=== PATIENT | female | born 1975 | race African-American/Black ===

== ENCOUNTER 2017-03-13 13:25 | Emergency (ER) | payer MEDICAID ==
[~2017-03-13] VITALS: Ht 175.3 cm; Wt 72.6 kg
[~2017-03-13 13:25] MED LIST: BACTRIM-DS1 EA PO; COMPAZINE10 MG PO; IBUPROFEN600 MG ORAL; LIDOPRO OINTME121 GM TP; NKM; NORCO 5-325 TA1 EACH ORAL; ONDANSETRON ODT4 MG PO; PRILOSEC20 MG PO; VICODIN 5-5001 EACH PO
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
[2017-03-13] MEDS ORDERED: CYCLOBENZAPRINE10 MG ORAL (14:37)
[2017-03-13] MEDS ORDERED: IBUPROFEN600 MG ORAL (14:37)
[2017-03-13 14:50] VITALS: BP 130/80
== END 2017-03-13 14:50 | disposition home or self-care (01) ==
LOC: EMR 14:01
DX: S16.1XXA Strain of muscle, fascia and tendon at neck level, initial encounter (principal); Z88.8 Allergy status to other drugs, medicaments and biological substances; V43.52XA Car driver injured in collision with other type car in traffic accident, initial encounter; Y92.410 Unspecified street and highway as the place of occurrence of the external cause
CPT/HCPCS: 99284

== ENCOUNTER 2017-06-05 09:14 | Emergency (ER) | payer MEDICAID ==
[~2017-06-05] VITALS: Ht 167.6 cm; Wt 72.6 kg
[~2017-06-05 09:14] MED LIST changes: +CYCLOBENZAPRINE10 MG ORAL
[2017-06-05] MEDS ORDERED: IBUPROFEN600 MG ORAL (10:06)
[2017-06-05] MEDS ORDERED: ROBAXIN-750750 MG PO (10:06)
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
[2017-06-05 10:20] VITALS: BP 127/84
== END 2017-06-05 10:20 | disposition home or self-care (01) ==
LOC: EMR 09:31
DX: S13.9XXD Sprain of joints and ligaments of unspecified parts of neck, subsequent encounter (principal); V43.52XD Car driver injured in collision with other type car in traffic accident, subsequent encounter; Z88.8 Allergy status to other drugs, medicaments and biological substances
CPT/HCPCS: 99284

== ENCOUNTER 2018-03-23 13:26 | Emergency (ER) | payer MEDICAID, OTHER ==
[~2018-03-23] VITALS: Ht 167.6 cm; Wt 74.8 kg
[~2018-03-23 13:26] MED LIST changes: +ROBAXIN-750750 MG PO
[2018-03-23 13:45] VITALS: BP 117/56
[2018-03-23] MEDS ORDERED: Mylanta II UD 30ml ORAL ONE (14:00)
[2018-03-23] MEDS ORDERED: Lidocaine 2% Visc 15ml soln ORAL ONE (14:00)
[2018-03-23] MEDS ORDERED: Aspirin Baby 81mg ORAL ONE (14:00)
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
[2018-03-23 14:37] LABS: BASOPHILS % (AUTO) 2.2 % (0.0-2.0); EOSINOPHILS % (AUTO) 0.2 % (0.0-3.0); HEMATOCRIT 30.6 % (37.0-47.0); LYMPHOCYTES % (AUTO) 22.4 % (20.0-45.0); MEAN CORPUSCULAR VOLUME 69 FL (80-99); MONOCYTES % (AUTO) 6.8 % (1.0-10.0); NEUTROPHILS % (AUTO) 68.5 % (45.0-75.0); PLATELET COUNT 276 K/UL (150-450); RED BLOOD COUNT 4.44 M/UL (4.20-5.40); RED CELL DISTRIBUTION WIDTH 14.6 % (11.6-14.8); WHITE BLOOD COUNT 4.4 K/UL (4.8-10.8)
[2018-03-23 14:48] LABS: ANION GAP 12 mmol/L (5-15); BLOOD UREA NITROGEN 14 mg/dL (7-18); CALCIUM 9.4 MG/DL (8.5-10.1); CARBON DIOXIDE 24 MMOL/L (21-32); CHLORIDE 102 MMOL/L (98-107); POTASSIUM 3.6 MMOL/L (3.5-5.1); SODIUM 138 MMOL/L (136-145)
[2018-03-23 15:02] LABS: ALANINE AMINOTRANSFERASE 37 U/L (12-78); ALBUMIN 3.9 G/DL (3.4-5.0); ALKALINE PHOSPHATASE 100 U/L (46-116); ASPARTATE AMINO TRANSFERASE 40 U/L (15-37); BILIRUBIN,TOTAL 0.5 MG/DL (0.2-1.0); CKMB 1.6 NG/ML (0.0-3.6); CREATINE KINASE 304 U/L (26-308)
--- NOTE | 2018-03-23 15:26 | Diagnostic Imaging Report ---
Indication: Cough Technique: One view of the chest Comparison: none Findings: Lungs and pleural spaces are clear. Heart size is normal Impression: No acute process
[2018-03-23] MEDS ORDERED: Isovue-370 150ml vial INJ PRN (15:45)
[2018-03-23 16:11] LABS: APPEARANCE,URINE CLEAR; BILIRUBIN, URINE NEGATIVE (NEGATIVE); COLOR,URINE PALE YELLOW; GLUCOSE, URINE (UA) NEGATIVE (NEGATIVE); KETONES,URINE 3+ (NEGATIVE); LEUKOCYTE ESTERASE ,URINE 1+ (NEGATIVE); NITRITE,URINE NEGATIVE (NEGATIVE); PH,URINE 5 (4.5-8.0); PROTEIN,URINE 2+ (NEGATIVE); UROBILINOGEN,URINE 1 MG/DL (0.0-1.0)
[2018-03-23 17:42] VITALS: BP 119/61
[2018-03-23] MEDS ORDERED: ZITHROMAX250 MG ORAL (17:56)
[2018-03-23 18:05] VITALS: BP 119/61
--- NOTE | 2018-03-24 08:23 | Diagnostic Imaging Report ---
ndication: Reason For Exam: PE Technique: IV administration nonionic contrast. Spiral acquisitions obtained from the lung bases to the lung apices. Multiplanar and 3-D reconstructions were generated. Total dose length product 526.87 mGycm. CTDIvol(s) 17.43 mGy. Dose reduction achieved using automated exposure control Comparison: none Findings: Pulmonary arteries are well opacified. No intraluminal filling defects or other findings to suggest acute pulmonary embolus demonstrated. Normal caliber central pulmonary arteries. No evidence of right ventricular dilatation. Normal heart size. No evidence of thoracic aortic aneurysm or dissection There is a large confluent right hilar mass/adenopathy. This results in narrowing of some of the upper lobe arteries. This measures approximately 4.3 cm AP by 2.9 cm transverse by 3.4 cm craniocaudad. There is also subcarinal lymphadenopathy, with conglomeration of nodes measuring approximately 4.5 x 2.6 cm. There is right paratracheal adenopathy and left hilar adenopathy. Left hilar adenopathy is less extensive than the right. Patchy areas of irregular airspace and reticular opacity are seen in the right upper lobe. Peripherally, some of these may have a slight tree-in-bud appearance There is equivocal mild generalized interstitial septal thickening in the upper lobes. The remainder all The lungs are clear. No effusions. The airways are clear. The esophagus is unremarkable. The included portions of the thyroid are unremarkable. No axillary or chest wall mass or adenopathy. The included upper abdominal anatomy is unremarkable. The bones are unremarkable. Impression: Negative for evidence of acute pulmonary embolus or other acute pulmonary vascular pathology. Right paratracheal mass/adenopathy. Less extensive left paratracheal adenopathy. Mediastinal adenopathy, as described. Differential considerations are numerous, including tuberculosis or other infectious etiologies, metastatic neoplasm, primary lymphoproliferative disorder, multiple noninfectious inflammatory etiologies. Distribution of the lymphadenopathy also raises possibility of sarcoidosis. Right upper lobe parenchymal disease, as described. Nonspecific but could indicate pneumonia or noninfectious inflammatory disease. Possible peripheral tree-in-bud appearance increases concern for tuberculosis Critical value findings discussed by phone with Dr. Leiva at the time of interpretation The CT scanner at [facility] is accredited by the [employer] and the scans are performed using protocols designed to limit radiation exposure to as low as reasonably achievable to attain images of sufficient resolution adequate for diagnostic evaluation.
--- NOTE | 2018-03-24 15:38 | Cardiology Report ---
APPROVED REPORT EKG Measurement Heart [id number] Normal sinus rhythm Normal ECG
== END 2018-03-23 18:25 | disposition home or self-care (01) ==
LOC: EMR 14:10
DX: R07.9 Chest pain, unspecified (principal); F41.9 Anxiety disorder, unspecified; R91.8 Other nonspecific abnormal finding of lung field; Z88.8 Allergy status to other drugs, medicaments and biological substances
CPT/HCPCS: 36415; 71045; 71275; 80053; 80307; 81003; 81025; 82550; 82553; 84439; 84443; 84484; 85025; 85379; 93005; 96361; 96374; 99284; Q9967; S0028

== ENCOUNTER 2018-05-25 12:37 | Emergency (ER) | payer OTHER ==
[~2018-05-25] VITALS: Ht 167.6 cm; Wt 68.0 kg
[~2018-05-25 12:37] MED LIST changes: +ZITHROMAX250 MG ORAL
[2018-05-25] MEDS ORDERED: UNOBMED (12:56)
[2018-05-25 13:00] VITALS: BP 122/67
[2018-05-25] MEDS ORDERED: CEPHALEXIN500 MG ORAL (13:20)
[2018-05-25 13:25] VITALS: BP 122/67
--- NOTE | 2018-05-25 14:48 | Emergency Room Report ---
History of Present Illness General Chief Complaint: Skin Rash/Abscess Source: Patient Present Illness HPI 42-year-old female presents ED for evaluation. Patient complaining of a rash to her chin started a few days ago. States it is very painful. Started as a small pimple which she tried to pop and has gotten worse. Pain is dull, 7 out of 10, nonradiating. Denies fevers or chills. Denies discharge. Notes history of prior acne which required treatment in the past. No other aggravating relieving factors. Denies any other associated symptoms Allergies: Coded Allergies: METOCLOPRAMIDE HCL (Verified Allergy, Mild, LOCKJAW, 07/25/12) PROMETHAZINE HCL (Verified Allergy, Mild, NAUSEA, 07/25/12) Patient History Past Medical History: none Past Surgical History: none Pertinent Family History: none Social History: Denies: smoking, alcohol use, drug use Last Menstrual Period: last month Now: No Immunizations: UTD Reviewed Nursing Documentation: PMH: Agreed; PSxH: Agreed Nursing Documentation-PMH Past Medical History: No Stated History Hx Gastrointestinal Problems: Yes Review of Systems All Other Systems: negative except mentioned in HPI Physical Exam Vital Signs Date Time Temp Pulse Resp B/P (MAP) Pulse Ox O2 Delivery O2 Flow Rate FiO2 05/25/18 12:52 98.8 73 18 122/67 100 Room Air 98.8 Sp02 EP Interpretation: reviewed, normal General Appearance: no apparent distress, alert, GCS 15, non-toxic Head: normocephalic Eyes: bilateral eye normal inspection, bilateral eye PERRL ENT: normal ENT inspection Neck: normal inspection Respiratory: normal inspection Cardiovascular #1: normal inspection Gastrointestinal: normal inspection Rectal: deferred Genitourinary: no CVA tenderness Musculoskeletal: normal inspection Neurologic: alert, oriented x3, responsive, motor strength/tone normal, sensory intact, speech normal Psychiatric: normal inspection Skin: other - folliculitis R chin. pustular heads. Lymphatic: normal inspection Medical Decision Making Diagnostic Impression: Primary Impression: Rash ER Course Hospital Course 42-year-old female presents to ED with rash to face Differential diagnoses include: Cellulitis, dermatitis, insect bite, abscess Clinical course Patient placed on stretcher. After initial history, physical exam reveals a female in no acute distress. On exam there are pustular heads noted to the chin. Nonerythematous base. No fluctuance or discharge. Insisting with folliculitis versus acne. We'll discharge on antibiotics. Recommend old with dermatology Diagnosis - rash stable and discharged to home with prescription for Keflex. warm compresses. Instructed to followup with PMD. Instructed return to ED if symptoms recur or worsen Last Vital Signs Date Time Temp Pulse Resp B/P (MAP) Pulse Ox O2 Delivery O2 Flow Rate FiO2 05/25/18 12:52 98.8 73 18 122/67 100 Room Air 98.8 Status: improved Disposition: HOME, SELF-CARE Condition: Stable Scripts Cephalexin* (KEFLEX*) 500 Mg Capsule 500 MG ORAL EVERY 6 HOURS for 7 Days, CAP Prov: Jomar Bazan MD 05/25/18 Referrals: [facility] (PCP) Patient Instructions: Acne, [id number], Folliculitis Jomar Bazan MD May 25, 2018 14:48
== END 2018-05-25 13:25 | disposition home or self-care (01) ==
LOC: EMR 13:15
DX: R21 Rash and other nonspecific skin eruption (principal); L73.9 Follicular disorder, unspecified; Z88.8 Allergy status to other drugs, medicaments and biological substances
CPT/HCPCS: 99283

== ENCOUNTER 2018-06-22 16:24 | Emergency (ER) | payer OTHER ==
[~2018-06-22] VITALS: Ht 167.6 cm; Wt 68.0 kg
[~2018-06-22 16:24] MED LIST changes: +CEPHALEXIN500 MG ORAL; +UNOBMED
[2018-06-22 16:50] VITALS: BP 145/90
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
[2018-06-22] MEDS ORDERED: BACITRACIN-P28.35 GM TP (18:00)
[2018-06-22] MEDS ORDERED: IBUPROFEN600 MG ORAL (18:00)
[2018-06-22 18:11] VITALS: BP 133/97
== END 2018-06-22 18:11 | disposition home or self-care (01) ==
LOC: EMR 18:07
DX: S01.111A Laceration without foreign body of right eyelid and periocular area, initial encounter (principal); Y04.2XXA Assault by strike against or bumped into by another person, initial encounter; Y92.9 Unspecified place or not applicable; Z88.8 Allergy status to other drugs, medicaments and biological substances
CPT/HCPCS: 12011; 99283; Z7502

== ENCOUNTER 2018-06-30 22:56 | Emergency (ER) | payer OTHER ==
[~2018-06-30] VITALS: Ht 167.6 cm; Wt 65.8 kg
[~2018-06-30 22:56] MED LIST changes: +BACITRACIN-P28.35 GM TP
[2018-06-30 23:15] VITALS: BP 132/81
[2018-06-30] MEDS ORDERED: BACTRIM DS TAB1 EAC1 ORAL (23:39)
[2018-06-30] MEDS ORDERED: MUPIROCIN22 GM TOPIC (23:39)
--- NOTE | 2018-06-30 23:39 | Emergency Room Report ---
History of Present Illness General Chief Complaint: Skin Rash/Abscess Source: Patient Present Illness HPI Is a 42-year-old female with a history of drug abuse in the past. She denies using anything recently. But previous visit show positive for methamphetamine. She presents with skin infection her face. She says she's picking at it and now is infected. Onset for about a week. No fever chills but no nausea no vomiting. No drainage. No other complaint. Allergies: Coded Allergies: METOCLOPRAMIDE HCL (Verified Allergy, Mild, LOCKJAW, 07/25/12) PROMETHAZINE HCL (Verified Allergy, Mild, NAUSEA, 07/25/12) Patient History Past Medical History: see triage record, old chart reviewed Past Surgical History: none Pertinent Family History: none Social History: Reports: smoking Last Menstrual Period: 06/22/2018 Now: No : 2 Para: 2 Immunizations: other Reviewed Nursing Documentation: PMH: Agreed; PSxH: Agreed Nursing Documentation-PMH Past Medical History: No Stated History Hx Gastrointestinal Problems: Yes Review of Systems Eye: Denies: eye pain, blurred vision ENT: Denies: ear pain, nose congestion, throat swelling Respiratory: Denies: cough, shortness of breath Cardiovascular: Denies: chest pain, palpitations Gastrointestinal: Denies: abdominal pain, diarrhea, nausea, vomiting Musculoskeletal: Denies: back pain, joint pain Skin: Reports: rash Neurological: Denies: headache, numbness Endocrine: Denies: increased thirst, increased urine Hematologic/Lymphatic: Denies: easy bruising All Other Systems: negative except mentioned in HPI Physical Exam Vital Signs Date Time Temp Pulse Resp B/P (MAP) Pulse Ox O2 Delivery O2 Flow Rate FiO2 06/30/18 23:04 97.5 74 16 131/83 99 Room Air vitals normal Sp02 EP Interpretation: reviewed, normal General Appearance: well appearing, no apparent distress, alert Head: normocephalic, atraumatic Eyes: bilateral eye PERRL, bilateral eye EOMI ENT: hearing grossly normal, normal pharynx, other - On her cheeks and chin there is ulceration from chronic skin picking. No abscess seen. Neck: full range of motion, supple, no meningismus Respiratory: chest non-tender, lungs clear, normal breath sounds Cardiovascular #1: regular rate, rhythm, no murmur Gastrointestinal: normal bowel sounds, non tender, no mass, no organomegaly, no bruit, non-distended Musculoskeletal: back normal, gait/station normal, normal range of motion Psychiatric: mood/affect normal Skin: warm/dry Medical Decision Making Diagnostic Impression: Primary Impression: Facial cellulitis Additional Impression: Methamphetamine abuse ER Course Patient with skin picking secondary to methamphetamine abuse. We'll treat for potential secondary cellulitis infection. Was likely MRSA. No evidence of abscess or necrotizing fasciitis. We'll discharge home. Last Vital Signs Date Time Temp Pulse Resp B/P (MAP) Pulse Ox O2 Delivery O2 Flow Rate FiO2 06/30/18 23:15 97.6 78 17 132/81 99 Room Air Status: improved Disposition: HOME, SELF-CARE Condition: Stable Scripts Mupirocin* (MUPIROCIN*) 22 Gm Oint...g. 1 APPLIC TOPIC THREE TIMES A DAY, #22 GM Prov: Roberto Gonzalez MD 06/30/18 Trimethoprim/Sulfamethoxazole 160/800* (BACTRIM DS TABLET*) 1 Each Tablet 1 TAB ORAL Q12H, #14 TAB 0 Refills Prov: Roberto Gonzalez MD 06/30/18 Additional Instructions: Stop using drugs. Follow-up in rehabilitation and your doctor within a week. Return if symptom worsen. Roberto Gonzalez MD Jun 30, 2018 23:39
[2018-06-30 23:46] VITALS: BP 132/81
== END 2018-06-30 23:46 | disposition home or self-care (01) ==
LOC: EMR 23:30
DX: L03.211 Cellulitis of face (principal); F15.10 Other stimulant abuse, uncomplicated; Z88.8 Allergy status to other drugs, medicaments and biological substances; F17.200 Nicotine dependence, unspecified, uncomplicated
CPT/HCPCS: 99283

== ENCOUNTER 2018-07-11 21:06 | Emergency (ER) | payer OTHER ==
[~2018-07-11] VITALS: Ht 167.6 cm; Wt 63.5 kg
[~2018-07-11 21:06] MED LIST changes: +BACTRIM DS TAB1 EAC1 ORAL; +MUPIROCIN22 GM TOPIC
--- NOTE | 2018-07-11 21:37 | Emergency Room Report ---
History of Present Illness General Chief Complaint: Vomiting Source: Patient Present Illness HPI Patient is a 42-year-old female who presented after increased nausea and vomiting. Patient was having multiple episodes of vomiting. She reports having syncopal episode. The patient had history of similar episodes in the past. The patient noted to be allergic to Reglan and promethazine. The patient denies any diarrhea. Allergies: Coded Allergies: METOCLOPRAMIDE HCL (Verified Allergy, Mild, LOCKJAW, 07/25/12) PROMETHAZINE HCL (Verified Allergy, Mild, NAUSEA, 07/25/12) Patient History Past Medical History: see triage record Last Menstrual Period: last month Now: No Reviewed Nursing Documentation: PMH: Agreed; PSxH: Agreed Nursing Documentation-PMH Past Medical History: No Stated History Hx Gastrointestinal Problems: Yes Review of Systems All Other Systems: negative except mentioned in HPI Physical Exam Vital Signs Date Time Temp Pulse Resp B/P (MAP) Pulse Ox O2 Delivery O2 Flow Rate FiO2 07/11/18 21:18 97.5 78 20 164/99 94 Room Air Sp02 EP Interpretation: reviewed, normal General Appearance: normal inspection, well appearing, no apparent distress, alert, GCS 15 Head: atraumatic ENT: normal ENT inspection, hearing grossly normal, normal voice Neck: normal inspection, full range of motion, supple, no bony tend Respiratory: normal inspection, lungs clear, normal breath sounds, no respiratory distress, no retraction, no wheezing Cardiovascular #1: regular rate, rhythm, no edema Gastrointestinal: normal inspection, normal bowel sounds, non tender, soft, no guarding, no hernia Genitourinary: no CVA tenderness Musculoskeletal: normal inspection, back normal, normal range of motion Neurologic: normal inspection, alert, oriented x3, responsive, senior it project manager III-XII nml as tested, speech normal Psychiatric: normal inspection, judgement/insight normal, mood/affect normal Skin: normal inspection, normal color, no rash Medical Decision Making ER Course Patient presented for syncope. Differential diagnosis included but was not limited to arrhythmia, orthostatic hypotension, hypovolemia, vasovagal, anemia among others. Last Vital Signs Date Time Temp Pulse Resp B/P (MAP) Pulse Ox O2 Delivery O2 Flow Rate FiO2 07/11/18 21:18 97.5 78 20 164/99 94 Room Air Pawel Sanchez MD Jul 11, 2018 21:37
[2018-07-11 21:58] LABS: ANION GAP 17 mmol/L (5-15); BLOOD UREA NITROGEN 10 mg/dL (7-18); CALCIUM 9.5 MG/DL (8.5-10.1); CARBON DIOXIDE 20 MMOL/L (21-32); CHLORIDE 102 MMOL/L (98-107); POTASSIUM 3.5 MMOL/L (3.5-5.1); SODIUM 139 MMOL/L (136-145)
[2018-07-11] MEDS ORDERED: Capsaicin 0.075% Cream TOPIC ONE (22:00)
[2018-07-11] MEDS ORDERED: Haloperidol Lactate 5 MG in D5W 55 ML IVPB ONE (22:00)
[2018-07-11 22:02] LABS: ALANINE AMINOTRANSFERASE 26 U/L (12-78); ALBUMIN 4.2 G/DL (3.4-5.0); ALBUMIN/GLOBULIN RATIO 0.8 (1.0-2.7); ALKALINE PHOSPHATASE 92 U/L (46-116); ASPARTATE AMINO TRANSFERASE 31 U/L (15-37); BILIRUBIN,TOTAL 0.3 MG/DL (0.2-1.0); HEMATOCRIT 29.4 % (37.0-47.0); HEMOGLOBIN 8.6 G/DL (12.0-16.0); MEAN CORPUSCULAR VOLUME 65 FL (80-99); PLATELET COUNT 248 K/UL (150-450); RED BLOOD COUNT 4.54 M/UL (4.20-5.40); RED CELL DISTRIBUTION WIDTH 15.9 % (11.6-14.8); WHITE BLOOD COUNT 9.4 K/UL (4.8-10.8)
[2018-07-11 23:03] VITALS: BP 113/64
--- NOTE | 2018-07-12 18:23 | Cardiology Report ---
APPROVED REPORT EKG Measurement Heart [id number] Normal sinus rhythm Normal ECG
== END 2018-07-11 22:50 | disposition left against medical advice (07) ==
LOC: EMR 21:49
DX: R55 Syncope and collapse (principal); Z88.8 Allergy status to other drugs, medicaments and biological substances
CPT/HCPCS: 36415; 80053; 85007; 85025; 93005; 96361; 96374; 96375; 99284; J1630; J2405

== ENCOUNTER 2018-08-03 07:44 | Emergency (ER) | payer OTHER ==
[~2018-08-03] VITALS: Ht 170.2 cm; Wt 68.0 kg
[2018-08-03] MEDS ORDERED: UNOBMED (07:48)
[2018-08-03] MEDS ORDERED: Sodium Chloride 500ML 500 ML IV ONE (07:53)
[2018-08-03] MEDS ORDERED: Haloperidol Lactate 5 MG in D5W 55 ML IVPB ONE (08:00)
--- NOTE | 2018-08-03 08:13 | Emergency Room Report ---
History of Present Illness General Chief Complaint: Abdominal Pain Source: Patient Present Illness HPI Patient is a 42-year-old female who presented after increased nausea and vomiting. Patient states that she had similar symptoms in the past. Patient had been seen by me several weeks ago a similar symptoms. Patient had been noted to have prior history of anemia she had previous CT angiogram of her chest which showed some lymphadenopathy. The patient was noted to have the recent blood draw which showed some anemia. Allergies: Coded Allergies: METOCLOPRAMIDE HCL (Verified Allergy, Mild, LOCKJAW, 07/25/12) PROMETHAZINE HCL (Verified Allergy, Mild, NAUSEA, 07/25/12) Patient History Last Menstrual Period: 07/2018 Now: No Reviewed Nursing Documentation: PMH: Agreed; PSxH: Agreed Nursing Documentation-PMH Past Medical History: No Stated History Hx Gastrointestinal Problems: Yes Review of Systems All Other Systems: negative except mentioned in HPI Physical Exam Vital Signs Date Time Temp Pulse Resp B/P (MAP) Pulse Ox O2 Delivery O2 Flow Rate FiO2 08/03/18 07:45 98.2 74 20 145/75 97 Room Air Sp02 EP Interpretation: reviewed, normal General Appearance: normal inspection, well appearing, no apparent distress, alert, GCS 15 Head: atraumatic ENT: normal ENT inspection, hearing grossly normal, normal voice Neck: normal inspection, full range of motion, supple, no bony tend Respiratory: normal inspection, lungs clear, normal breath sounds, no respiratory distress, no retraction, no wheezing Cardiovascular #1: regular rate, rhythm, no edema Gastrointestinal: normal inspection, normal bowel sounds, non tender, soft, no guarding, no hernia Genitourinary: no CVA tenderness Musculoskeletal: normal inspection, back normal, normal range of motion Neurologic: normal inspection, alert, oriented x3, responsive, testing tech III-XII nml as tested, speech normal Psychiatric: normal inspection, judgement/insight normal, mood/affect normal Skin: normal inspection, normal color, no rash Medical Decision Making Diagnostic Impression: Primary Impression: Hyperemesis Additional Impression: Anemia ER Course Patient presented for abdominal pain. Differential diagnoses included ischemic bowel, appendicitis, perforated viscus, abdominal aortic aneurysm, inferior myocardial infarction, viral gastroenteritis Because of complexity of patient's case laboratory testing and imaging studies were ordered. The patient noted have prior history of hyperemesis due to marijuana. Patient had been previous advised to discontinue marijuana use the past. The patient was given IV fluids as well as IV antiemetics.The patient was noted to have improvement in her symptoms. Patient was advised to follow up with primary care physician for reevaluation and treatment. She is advised to stop smoking marijuana. Labs Test 08/03/18 07:35 08/03/18 09:00 White Blood Count 7.9 K/UL (4.8-10.8) Red Blood Count 4.65 M/UL (4.20-5.40) Hemoglobin 8.7 G/DL (12.0-16.0) Hematocrit 29.8 % (37.0-47.0) Mean Corpuscular Volume 64 FL (80-99) Mean Corpuscular Hemoglobin 18.8 PG (27.0-31.0) Mean Corpuscular Hemoglobin Concent 29.3 G/DL (32.0-36.0) Red Cell Distribution Width 16.7 % (11.6-14.8) Platelet Count 183 K/UL (150-450) Mean Platelet Volume 8.1 FL (6.5-10.1) Neutrophils (%) (Auto) 82.6 % (45.0-75.0) Lymphocytes (%) (Auto) 11.8 % (20.0-45.0) Monocytes (%) (Auto) 4.3 % (1.0-10.0) Eosinophils (%) (Auto) 0.1 % (0.0-3.0) Basophils (%) (Auto) 1.2 % (0.0-2.0) Prothrombin Time 10.5 SEC (9.30-11.50) Prothromb Time International Ratio 1.0 (0.9-1.1) Activated Partial Thromboplast Time 25 SEC (23-33) Sodium Level 138 MMOL/L (136-145) Potassium Level 3.2 MMOL/L (3.5-5.1) Chloride Level 104 MMOL/L (98-107) Carbon Dioxide Level 21 MMOL/L (21-32) Anion Gap 13 mmol/L (5-15) Blood Urea Nitrogen 13 mg/dL (7-18) Creatinine 0.9 MG/DL (0.55-1.30) Estimat Glomerular Filtration Rate > 60 mL/min (>60) Glucose Level 119 MG/DL (74-106) Calcium Level 9.2 MG/DL (8.5-10.1) Total Bilirubin 0.2 MG/DL (0.2-1.0) Aspartate Amino Transf (AST/SGOT) 26 U/L (15-37) Alanine Aminotransferase (ALT/SGPT) 27 U/L (12-78) Alkaline Phosphatase 106 U/L (46-116) Troponin I 0.000 ng/mL (0.000-0.056) Total Protein 9.1 G/DL (6.4-8.2) Albumin 3.9 G/DL (3.4-5.0) Globulin 5.2 g/dL Albumin/Globulin Ratio 0.8 (1.0-2.7) Lipase 177 U/L (73-393) Urine Color Pale yellow Urine Appearance Clear Urine pH 7 (4.5-8.0) Urine Specific [place]ard 1.010 (1.005-1.035) Urine Protein Negative (NEGATIVE) Urine Glucose (UA) Negative (NEGATIVE) Urine Ketones Negative (NEGATIVE) Urine Blood Negative (NEGATIVE) Urine Nitrite Negative (NEGATIVE) Urine Bilirubin Negative (NEGATIVE) Urine Urobilinogen Normal MG/DL (0.0-1.0) Urine Leukocyte Esterase Negative (NEGATIVE) Last Vital Signs Date Time Temp Pulse Resp B/P (MAP) Pulse Ox O2 Delivery O2 Flow Rate FiO2 08/03/18 07:45 98.2 74 20 145/75 97 Room Air Status: improved Disposition: HOME, SELF-CARE Condition: Stable Scripts Ondansetron (Zofran) 4 Mg Tablet 4 MG ORAL Q6H PRN for Nausea & Vomiting, #15 TAB 0 Refills Prov: Pawel Sanchez MD 08/03/18 Ferrous Sulfate (IRON) 325 Mg Tablet 325 MG PO DAILY, #20 TAB Prov: Pawel Sanchez MD 08/03/18 Referrals: [facility] (PCP) Pawel Sanchez MD Aug 03, 2018 08:13
[2018-08-03] MEDS ORDERED: LORazepam Inj 2mg/ml 1ml IV ONE (08:15)
[2018-08-03 08:27] VITALS: BP 145/75
[2018-08-03 08:43] LABS: BASOPHILS % (AUTO) 1.2 % (0.0-2.0); EOSINOPHILS % (AUTO) 0.1 % (0.0-3.0); HEMATOCRIT 29.8 % (37.0-47.0); HEMOGLOBIN 8.7 G/DL (12.0-16.0); LYMPHOCYTES % (AUTO) 11.8 % (20.0-45.0); MEAN CORPUSCULAR VOLUME 64 FL (80-99); MONOCYTES % (AUTO) 4.3 % (1.0-10.0); NEUTROPHILS % (AUTO) 82.6 % (45.0-75.0); PLATELET COUNT 183 K/UL (150-450); RED BLOOD COUNT 4.65 M/UL (4.20-5.40); RED CELL DISTRIBUTION WIDTH 16.7 % (11.6-14.8); WHITE BLOOD COUNT 7.9 K/UL (4.8-10.8)
[2018-08-03 08:54] LABS: ANION GAP 13 mmol/L (5-15); BLOOD UREA NITROGEN 13 mg/dL (7-18); CALCIUM 9.2 MG/DL (8.5-10.1); CARBON DIOXIDE 21 MMOL/L (21-32); CHLORIDE 104 MMOL/L (98-107); CREATININE 0.9 MG/DL (0.55-1.30); POTASSIUM 3.2 MMOL/L (3.5-5.1); SODIUM 138 MMOL/L (136-145)
[2018-08-03 08:59] LABS: ALANINE AMINOTRANSFERASE 27 U/L (12-78); ALBUMIN 3.9 G/DL (3.4-5.0); ALBUMIN/GLOBULIN RATIO 0.8 (1.0-2.7); ALKALINE PHOSPHATASE 106 U/L (46-116); ASPARTATE AMINO TRANSFERASE 26 U/L (15-37); BILIRUBIN,TOTAL 0.2 MG/DL (0.2-1.0)
[2018-08-03 09:21] LABS: APPEARANCE,URINE CLEAR; BILIRUBIN, URINE NEGATIVE (NEGATIVE); COLOR,URINE PALE YELLOW; GLUCOSE, URINE (UA) NEGATIVE (NEGATIVE); KETONES,URINE NEGATIVE (NEGATIVE); LEUKOCYTE ESTERASE ,URINE NEGATIVE (NEGATIVE); NITRITE,URINE NEGATIVE (NEGATIVE); PH,URINE 7 (4.5-8.0); PROTEIN,URINE NEGATIVE (NEGATIVE); UROBILINOGEN,URINE NORMAL MG/DL (0.0-1.0)
[2018-08-03] MEDS ORDERED: ZOFRAN4 MG ORAL (09:41)
[2018-08-03] MEDS ORDERED: IRON325 M1 PO (09:41)
[2018-08-03 09:50] VITALS: BP 115/85
== END 2018-08-03 09:52 | disposition home or self-care (01) ==
LOC: EMR 08:10
DX: R11.2 Nausea with vomiting, unspecified (principal); D64.9 Anemia, unspecified; R59.0 Localized enlarged lymph nodes; R10.9 Unspecified abdominal pain; Z88.8 Allergy status to other drugs, medicaments and biological substances
CPT/HCPCS: 36415; 80053; 81003; 83690; 84484; 85025; 85610; 85730; 86850; 86900; 86901; 96374; 96375; 99284; J1630; J2405; J7040; J8499

== ENCOUNTER 2018-12-23 21:04 | Emergency (ER) | payer OTHER ==
[~2018-12-23] VITALS: Ht 167.6 cm; Wt 68.0 kg
[~2018-12-23 21:04] MED LIST changes: +IRON325 M1 PO; +ZOFRAN4 MG ORAL
--- NOTE | 2018-12-23 21:39 | Emergency Room Report ---
History of Present Illness General Chief Complaint: Skin Rash/Abscess Source: Patient Present Illness HPI Presents with facial swelling and pain. She's had this before. She was treated with Keflex in the past. Her tetanus was last year. She pulls out facial hairs and the areas get infected. The infection spreads around her face. She denies any fevers or chills. The pain is rated 8/10, aching and burning in the face where the lesions are. Nonradiating. In the past she was also treated with Bactrim and Bactroban. Her last period was on the and normal for her. She denies any other symptoms. She denies diabetes. Allergies: Coded Allergies: METOCLOPRAMIDE HCL (Verified Allergy, Mild, LOCKJAW, 12/23/18) PROMETHAZINE HCL (Verified Allergy, Mild, NAUSEA, 12/23/18) Patient History Past Medical History: see triage record Social History: Denies: smoking Social History Narrative From home Now: No : 3 Para: 2 Reviewed Nursing Documentation: PMH: Agreed; PSxH: Agreed Nursing Documentation-PMH Past Medical History: No Stated History Hx Gastrointestinal Problems: Yes Review of Systems All Other Systems: negative except mentioned in HPI Physical Exam Vital Signs Date Time Temp Pulse Resp B/P (MAP) Pulse Ox O2 Delivery O2 Flow Rate FiO2 12/23/18 21:20 98.1 67 16 130/81 98 Room Air General Appearance: well appearing, no apparent distress, GCS 15, non-toxic Head: normocephalic, atraumatic Eyes: bilateral eye normal inspection ENT: hearing grossly normal, normal voice, moist mucus membranes Neck: full range of motion, supple Respiratory: no respiratory distress, speaking full sentences Cardiovascular #1: regular rate, rhythm Cardiovascular #2: 2+ radial (R) Gastrointestinal: normal inspection Musculoskeletal: digits/nails normal, gait/station normal, normal range of motion Neurologic: alert, oriented x3, normal gait, grossly normal Psychiatric: mood/affect normal Skin: other - Acneform lesions with slight hirsutism and areas of tenderness with raised nodularity without fluctuance or erythema Medical Decision Making Diagnostic Impression: Primary Impression: Facial cellulitis ER Course Patient presents with swelling, facial pain lesions that she believes are infected. Exam is against abscesses. This appears to be a cellulitis/ folliculitis. Antibiotics are indicated as well as analgesia. The patient is started on Bactrim, bacitracin is used and she is given Motrin. Patient stable for outpatient observation and treatment. Last Vital Signs Date Time Temp Pulse Resp B/P (MAP) Pulse Ox O2 Delivery O2 Flow Rate FiO2 12/24/18 00:36 98.1 81 16 131/80 98 Room Air Status: improved Disposition: HOME, SELF-CARE Condition: Improved Scripts Acetaminophen (Tylenol) 325 Mg Tablet 650 MG ORAL Q6H PRN for Prn Pain/Headache/Temp > 101, #20 TAB 0 Refills Prov: Rashard Tapia MD 12/23/18 Ibuprofen* (MOTRIN*) 600 Mg Tablet 600 MG ORAL Q6H PRN for For Pain, #20 TAB Prov: Rashard Tapia MD 12/23/18 Bacitracin (Bacitracin) 28.4 Gm Oint...g. 1 APPLIC TOPIC BID, #20 GM Prov: Rashard Tapia MD 12/23/18 Trimethoprim/Sulfamethoxazole 160/800* (BACTRIM DS TABLET*) 1 Each Tablet 1 TAB ORAL Q12H, #14 TAB 0 Refills Prov: Rashard Tapia MD 12/23/18 Rashard Tapia MD Dec 23, 2018 21:39
[2018-12-23] MEDS ORDERED: IBUPROFEN600 MG ORAL (21:42)
[2018-12-23] MEDS ORDERED: BACITRACIN15 GM TOPIC (21:42)
[2018-12-23] MEDS ORDERED: BACTRIM DS TAB1 EAC1 ORAL (21:42)
[2018-12-23] MEDS ORDERED: TYLENOL325 MG ORAL (21:42)
[2018-12-23] MEDS ORDERED: Bactrim-DS 1 tab ORAL ONE (21:45)
[2018-12-23] MEDS ORDERED: Bacitracin Oint UD TOPIC ONE (21:45)
[2018-12-24 00:36] VITALS: BP 131/80
== END 2018-12-23 22:30 | disposition home or self-care (01) ==
LOC: EMR 22:26
DX: L03.211 Cellulitis of face (principal); Z88.8 Allergy status to other drugs, medicaments and biological substances
CPT/HCPCS: 99281

== ENCOUNTER 2019-01-18 06:19 | Emergency (ER) | payer OTHER ==
[~2019-01-18] VITALS: Ht 167.6 cm; Wt 68.0 kg
[~2019-01-18 06:19] MED LIST changes: +BACITRACIN15 GM TOPIC; +TYLENOL325 MG ORAL
[2019-01-18] MEDS ORDERED: NKM (06:25)
--- NOTE | 2019-01-18 06:28 | NUR ---
ED Nurse Note: PT CAME TO ED FROM HOME C/O OF SKIN INFECTION ON CHEEKS AND CHIN X 3 DAYS. SMALL ACNE LIKE LESIONS NOTED. AO4. NAD. VSS
[2019-01-18 06:32] VITALS: BP 132/89
--- NOTE | 2019-01-18 06:45 | Emergency Room Report ---
History of Present Illness General Chief Complaint: Skin Rash/Abscess Source: Patient Present Illness HPI Patient states that she has had ongoing issues with acne. She states she gets large pustules on her face that become inflamed and swollen. She states that she does pop these lesions. She notes that these become worse just prior to her menses. She has seen a manager corporate strategy in the past but states that these treatments were not effective. She denies recent illness. She denies fever or chills. She denies nausea or vomiting. She states the antibiotic she received last time from here for the same condition was not as effective. She has no other complaints. Allergies: Coded Allergies: METOCLOPRAMIDE HCL (Verified Allergy, Mild, LOCKJAW, 12/23/18) PROMETHAZINE HCL (Verified Allergy, Mild, NAUSEA, 12/23/18) Patient History Past Medical History: none Social History: Reports: smoking; Denies: alcohol use, drug use Last Menstrual Period: 01/07/19 Now: No Reviewed Nursing Documentation: PMH: Agreed; PSxH: Agreed Nursing Documentation-PMH Past Medical History: No Stated History Hx Gastrointestinal Problems: Yes Review of Systems All Other Systems: negative except mentioned in HPI Physical Exam Vital Signs Date Time Temp Pulse Resp B/P (MAP) Pulse Ox O2 Delivery O2 Flow Rate FiO2 01/18/19 06:20 98.1 70 16 99 Room Air 01/18/19 06:32 132/89 Sp02 EP Interpretation: reviewed, normal General Appearance: no apparent distress, alert, GCS 15, non-toxic Head: normocephalic, atraumatic Eyes: bilateral eye normal inspection ENT: hearing grossly normal, no angioedema, normal voice Neck: normal inspection Respiratory: no respiratory distress, no retraction, no accessory muscle use, speaking full sentences Rectal: deferred Musculoskeletal: normal inspection, gait/station normal Neurologic: alert, oriented x3, responsive, motor strength/tone normal, sensory intact, speech normal Psychiatric: judgement/insight normal, memory normal, mood/affect normal, no suicidal/homicidal ideation Skin: warm/dry, well hydrated, other - Scattered nodular lesions on face c/w acne Medical Decision Making Diagnostic Impression: Primary Impression: Acne ER Course She has nodular acne. I will place the patient on a course of oral doxycycline and instructed her on benzyl peroxide washes. Overall, this patient's evaluation is benign and there is no emergency medical condition. The patient instructed to follow-up with her primary care physician or manager corporate strategy. The patient is given close return precautions and follow-up instructions. Last Vital Signs Date Time Temp Pulse Resp B/P (MAP) Pulse Ox O2 Delivery O2 Flow Rate FiO2 01/18/19 06:32 98.1 70 16 132/89 99 Room Air Status: improved Disposition: HOME, SELF-CARE Condition: Improved Referrals: NON PHYSICIAN (PCP) Aleyda Foley DO January 18, 2019 06:45
[2019-01-18] MEDS ORDERED: BENZOYL PEROXI TP (06:57)
[2019-01-18] MEDS ORDERED: VIBRAMYCIN100 MG ORAL (06:57)
[2019-01-18 07:00] VITALS: BP 132/89
--- NOTE | 2019-01-18 07:00 | NUR ---
ER DISCHARGE NOTE: Patient is cleared to be discharged per ERMD, pt is aox4, on room air, with stable vital signs. pt was given dc and prescription instructions, pt was able to verbalize understanding, pt id band removed. pt is able to ambulate with steady gait. pt took all belongings.
== END 2019-01-18 07:00 | disposition home or self-care (01) ==
LOC: EMR 06:32
DX: L70.0 Acne vulgaris (principal); Z88.8 Allergy status to other drugs, medicaments and biological substances; F17.200 Nicotine dependence, unspecified, uncomplicated
CPT/HCPCS: 99281

== ENCOUNTER 2019-04-25 09:30 | Emergency (ER) | payer OTHER ==
[~2019-04-25] VITALS: Ht 167.6 cm; Wt 72.6 kg
[~2019-04-25 09:30] MED LIST changes: +BENZOYL PEROXI TP; +IBUPROFEN800 MG ORAL; +VIBRAMYCIN100 MG ORAL
[2019-04-25] MEDS ORDERED: BACTRIM DOUBLE S1 E1 ORAL (09:42)
[2019-04-25 09:48] VITALS: BP 153/89
[2019-04-25] MEDS ORDERED: CLINDAMYCIN HC300 MG ORAL (10:01)
[2019-04-25] MEDS ORDERED: MUPIROCIN22 GM TOPIC (10:01)
--- NOTE | 2019-04-25 10:12 | NUR ---
examined by dr mace discharged home with instruction and rx follow up with pmd
[2019-04-25 10:30] VITALS: BP 153/89
--- NOTE | 2019-04-25 10:39 | Emergency Room Report ---
History of Present Illness General Chief Complaint: Skin Rash/Abscess Source: Patient Present Illness HPI 43-year-old female presents ED for evaluation. Patient complaining of a rash to her cheeks. States that she is prone to acne and states that she was popping some pustules when her face became swollen and red. Primarily over the cheeks. Pain is throbbing, 7 out of 10, nonradiating. Denies fevers or chills. Denies neck stiffness. Denies any discharge. No other aggravating relieving factors. Denies any other associated symptoms Allergies: Coded Allergies: METOCLOPRAMIDE HCL (Verified Allergy, Mild, LOCKJAW, 12/23/18) PROMETHAZINE HCL (Verified Allergy, Mild, NAUSEA, 04/25/19) Patient History Past Medical History: none Past Surgical History: none Pertinent Family History: none Social History: Denies: smoking, alcohol use, drug use Last Menstrual Period: MAR, 2018 Now: No Immunizations: UTD Reviewed Nursing Documentation: PMH: Agreed; PSxH: Agreed Nursing Documentation-PMH Past Medical History: No Stated History Hx Gastrointestinal Problems: Yes Review of Systems All Other Systems: negative except mentioned in HPI Physical Exam Vital Signs Date Time Temp Pulse Resp B/P (MAP) Pulse Ox O2 Delivery O2 Flow Rate FiO2 04/25/19 09:37 98.4 77 16 153/89 (110) 97 Room Air Sp02 EP Interpretation: reviewed, normal General Appearance: no apparent distress, alert, GCS 15, non-toxic Head: normocephalic Eyes: bilateral eye normal inspection, bilateral eye PERRL ENT: normal ENT inspection Neck: full range of motion, supple, no meningismus, supple/symm/no masses Respiratory: normal inspection Cardiovascular #1: normal inspection Gastrointestinal: normal inspection Rectal: deferred Genitourinary: no CVA tenderness Musculoskeletal: normal inspection Neurologic: alert, oriented x3, responsive, motor strength/tone normal, sensory intact, speech normal Psychiatric: normal inspection Skin: other - acne on bilateral cheeks. erythematous base Lymphatic: normal inspection Medical Decision Making Diagnostic Impression: Primary Impression: Folliculitis ER Course Hospital Course 43-year-old female presents to ED with rash to face Differential diagnoses include: Cellulitis, dermatitis, insect bite, abscess Clinical course Patient placed on stretcher. After initial history, physical exam reveals a female in no acute distress. On exam there is a erupting acne on both cheeks bilaterally with erythematous base. No fluctuance or discharge. Discussed findings with patient. Will discharge with clindamycin and Bactroban. However patient would benefit from outpatient dermatology evaluation. States she will follow-up with her PMD for referral Diagnosis - folliculitis stable and discharged to home with prescription for clindamycin, mupirocin. Instructed to followup with PMD dermatology. Instructed return to ED if symptoms recur or worsen Last Vital Signs Date Time Temp Pulse Resp B/P (MAP) Pulse Ox O2 Delivery O2 Flow Rate FiO2 04/25/19 09:48 98.4 16 153/89 97 Room Air 04/25/19 09:37 77 Status: improved Disposition: HOME, SELF-CARE Condition: Stable Scripts Clindamycin Hcl (CLINDAMYCIN HCL) 300 Mg Capsule 300 MG ORAL THREE TIMES A DAY, #21 CAP Prov: Jomar Bazan MD 04/25/19 Mupirocin* (MUPIROCIN*) 22 Gm Oint...g. 1 APPLIC TOPIC THREE TIMES A DAY, #22 GM Prov: Jomar Bazan MD 04/25/19 Patient Instructions: Folliculitis Jomar Bazan MD Apr 25, 2019 10:39
== END 2019-04-25 10:30 | disposition home or self-care (01) ==
LOC: EMR 09:55
DX: L73.9 Follicular disorder, unspecified (principal); Z88.8 Allergy status to other drugs, medicaments and biological substances
CPT/HCPCS: 99282

== ENCOUNTER 2019-11-02 00:12 | Emergency (ER) | payer OTHER ==
[~2019-11-02] VITALS: Ht 167.6 cm; Wt 72.6 kg
[~2019-11-02 00:12] MED LIST changes: +BACTRIM DOUBLE S1 E1 ORAL; +CLINDAMYCIN HC300 MG ORAL
[2019-11-02 00:34] VITALS: BP 138/71
--- NOTE | 2019-11-02 00:34 | NUR ---
ED Nurse Note: Patient walked in from home d/t face rash for 3 days, pt tried to pop pimple and face now hurts. Patient aao x 4 and ambulatory. Patient stable upon assessment.
--- NOTE | 2019-11-02 00:41 | NUR ---
ED Nurse Note: ERMD at bedside.
[2019-11-02] MEDS ORDERED: Bactrim-DS 1 tab ORAL ONE (00:45)
[2019-11-02] MEDS ORDERED: CLINDAMYCIN PHO30 GM TP (00:49)
[2019-11-02] MEDS ORDERED: BACTRIM DS TAB1 EAC1 ORAL (00:49)
--- NOTE | 2019-11-02 00:50 | Emergency Room Report ---
History of Present Illness General Chief Complaint: Skin Rash/Abscess Source: Patient Present Illness HPI This a 44-year-old female with a history of methamphetamine abuse. She presents with chief complaint of rash on her face. Onset for last 4 days. She said she tried to pop it and there is some whitish discharge. Now there is another wound on her chin. No fever chills but tender to palpation. No drainage. No redness. She had this problem recurrently. Pain is 7 out of 10. Worse with palpation. Better with rest. Allergies: Coded Allergies: METOCLOPRAMIDE HCL (Verified Allergy, Mild, LOCKJAW, 12/23/18) PROMETHAZINE HCL (Verified Allergy, Mild, NAUSEA, 04/25/19) Patient History Past Medical History: see triage record, old chart reviewed Past Surgical History: other Pertinent Family History: none Social History: Denies: smoking Last Menstrual Period: 10/25/19 Now: No Immunizations: other Reviewed Nursing Documentation: PMH: Agreed; PSxH: Agreed Nursing Documentation-PMH Past Medical History: No History, Except For Hx Gastrointestinal Problems: Yes Review of Systems Eye: Denies: eye pain, blurred vision ENT: Denies: ear pain, nose congestion, throat swelling Respiratory: Denies: cough, shortness of breath Cardiovascular: Denies: chest pain, palpitations Gastrointestinal: Denies: abdominal pain, diarrhea, nausea, vomiting Musculoskeletal: Denies: back pain, joint pain Skin: Denies: rash Neurological: Denies: headache, numbness Endocrine: Denies: increased thirst, increased urine Hematologic/Lymphatic: Denies: easy bruising All Other Systems: negative except mentioned in HPI Physical Exam Vital Signs Date Time Temp Pulse Resp B/P (MAP) Pulse Ox O2 Delivery O2 Flow Rate FiO2 11/02/19 00:22 98.4 81 22 141/67 (91) 97 Room Air Vitals normal Sp02 EP Interpretation: reviewed, normal General Appearance: well appearing, no apparent distress, alert Head: normocephalic, atraumatic Eyes: bilateral eye PERRL, bilateral eye EOMI ENT: hearing grossly normal, normal pharynx, other - Right chin area with less than 1 cm fluctuant area. Tender to palpation. No purulent discharge. No redness. She has scarring on the right facial area from previous infection. Neck: full range of motion, supple, no meningismus Respiratory: chest non-tender, lungs clear, normal breath sounds Cardiovascular #1: regular rate, rhythm, no murmur Gastrointestinal: normal bowel sounds, non tender, no mass, no organomegaly, no bruit, non-distended Musculoskeletal: back normal, normal range of motion, gait/station normal Psychiatric: mood/affect normal Medical Decision Making Diagnostic Impression: Primary Impression: Abscess ER Course Patient with a small superficial abscess to the chin. No evidence of necrotizing fasciitis or deep infection. Will discharge home. Last Vital Signs Date Time Temp Pulse Resp B/P (MAP) Pulse Ox O2 Delivery O2 Flow Rate FiO2 11/02/19 00:34 98.4 76 20 138/71 98 Room Air Status: improved Disposition: HOME, SELF-CARE Condition: Stable Scripts Clindamycin Phosphate (CLINDAMYCIN PHOSPHATE) 30 Gm Gel..gram. 30 GM TP BID, #30 GM Prov: Roberto Gonzalez MD 11/02/19 Trimethoprim/Sulfamethoxazole 160/800* (BACTRIM DS TABLET*) 1 Each Tablet 1 TAB ORAL Q12H, #14 TAB 0 Refills Prov: Roberto Gonzalez MD 11/02/19 Referrals: NON PHYSICIAN (PCP) Patient Instructions: Abscess Additional Instructions: Keep wound clean. Clean first with hydrogen peroxide and then apply antibiotic ointment. Follow-up with your doctor in 7 days for recheck. Return if worse. Roberto Gonzalez MD Nov 02, 2019 00:50
[2019-11-02 00:52] VITALS: BP 135/75
--- NOTE | 2019-11-02 00:52 | NUR ---
ER DISCHARGE NOTE: Patient is cleared to be discharged per ERMD, pt is aox4, on room air, with stable vital signs. pt was given dc and prescription instructions, pt was able to verbalize understanding, pt id band removed. pt is able to ambulate with steady gait. pt took all belongings. pt stable upon discharge.
== END 2019-11-02 00:52 | disposition home or self-care (01) ==
LOC: EMR 00:40
DX: L02.01 Cutaneous abscess of face (principal); Z88.8 Allergy status to other drugs, medicaments and biological substances
CPT/HCPCS: 99282

== ENCOUNTER 2020-03-06 00:15 | Emergency (ER) | payer OTHER ==
[~2020-03-06] VITALS: Ht 167.6 cm; Wt 72.6 kg
[~2020-03-06 00:15] MED LIST changes: +CLINDAMYCIN PHO30 GM TP
--- NOTE | 2020-03-06 00:25 | NUR ---
ED Nurse Note: Pt ambulated to ED from home c/o abcess on R chin for several days, pt reports picking at an ingrown hair and it becoming enflamed. 06/09 pain. VSS, denies fevers
[2020-03-06] MEDS ORDERED: Bactrim-DS 1 tab ORAL ONE (00:30)
[2020-03-06] MEDS ORDERED: IBUPROFEN600 M1 ORAL (00:32)
[2020-03-06] MEDS ORDERED: MUPIROCIN22 GM TOPIC (00:32)
[2020-03-06] MEDS ORDERED: BACTRIM DS TAB1 EAC1 ORAL (00:32)
--- NOTE | 2020-03-06 00:33 | Emergency Room Report ---
History of Present Illness General Chief Complaint: Skin Rash/Abscess Source: Patient Present Illness HPI This is a 44-year-old female with history anxiety. She presents with abscess to her chin. This been ongoing for a week. She popped it and now still hurting. She denies any fever chills but the swelling to this area. No nausea no vomiting. Worse with palpation. Better with rest. Denies any other complaint. 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: No Patient History Past Medical History: see triage record, old chart reviewed Past Surgical History: none Pertinent Family History: none Social History: Denies: smoking Last Menstrual Period: 01/2020 Now: No Immunizations: other Reviewed Nursing Documentation: PMH: Agreed; PSxH: Agreed Nursing Documentation-PMH Hx Gastrointestinal Problems: Yes Review of Systems Eye: Denies: eye pain, blurred vision ENT: Denies: ear pain, nose congestion, throat swelling Respiratory: Denies: cough, shortness of breath Cardiovascular: Denies: chest pain, palpitations Gastrointestinal: Denies: abdominal pain, diarrhea, nausea, vomiting Musculoskeletal: Denies: back pain, joint pain Skin: Denies: rash Neurological: Denies: headache, numbness Endocrine: Denies: increased thirst, increased urine Hematologic/Lymphatic: Denies: easy bruising All Other Systems: negative except mentioned in HPI Physical Exam Vital Signs Date Time Temp Pulse Resp B/P (MAP) Pulse Ox O2 Delivery O2 Flow Rate FiO2 03/06/20 00:19 98.1 89 16 119/79 (92) 99 Room Air Vitals normal Sp02 EP Interpretation: reviewed, normal General Appearance: well appearing, no apparent distress, alert Head: normocephalic, atraumatic Eyes: bilateral eye PERRL, bilateral eye EOMI ENT: hearing grossly normal, normal pharynx, other - Right chin: She has an area of ulceration and surrounding edema. There is no drainage. Tender to palpation. Neck: full range of motion, supple, no meningismus Respiratory: chest non-tender, lungs clear, normal breath sounds Cardiovascular #1: regular rate, rhythm, no murmur Gastrointestinal: normal bowel sounds, non tender, no mass, no organomegaly, no bruit, non-distended Musculoskeletal: back normal, normal range of motion, gait/station normal Psychiatric: mood/affect normal Medical Decision Making Diagnostic Impression: Primary Impression: Abscess ER Course Patient with an abscess that drained already. 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 I see no need for I&D. We will put her on antibiotics. Last Vital Signs Date Time Temp Pulse Resp B/P (MAP) Pulse Ox O2 Delivery O2 Flow Rate FiO2 03/06/20 00:19 98.1 89 16 119/79 (92) 99 Room Air Status: improved Disposition: HOME, SELF-CARE Condition: Stable Scripts Ibuprofen* (MOTRIN*) 600 Mg Tablet 600 MG ORAL Q6H PRN for FOR PAIN, #20 TAB 0 Refills Prov: Roberto Gonzalez MD 03/06/20 Trimethoprim/Sulfamethoxazole 160/800* (BACTRIM DS TABLET*) 1 Each Tablet 1 TAB ORAL Q12H, #14 TAB 0 Refills Prov: Roberto Gonzalez MD 03/06/20 Mupirocin* (MUPIROCIN*) 22 Gm Oint...g. 1 APPLIC TOPIC THREE TIMES A DAY, #22 GM Prov: Roberto Gonzalez MD 03/06/20 Patient Instructions: Abscess Additional Instructions: Keep wound clean. Clean first with hydrogen peroxide and then apply antibiotic ointment. Follow-up your doctor in 7 days for recheck. Return if worse. Roberto Gonzalez MD Mar 06, 2020 00:33
[2020-03-06 00:40] VITALS: BP 119/79
== END 2020-03-06 00:40 | disposition home or self-care (01) ==
LOC: EMR 00:32
DX: L02.01 Cutaneous abscess of face (principal); Z88.8 Allergy status to other drugs, medicaments and biological substances; F41.9 Anxiety disorder, unspecified
CPT/HCPCS: 99282

== ENCOUNTER 2020-04-18 07:11 | Emergency (ER) | payer OTHER ==
[~2020-04-18] VITALS: Ht 167.6 cm; Wt 68.0 kg
[~2020-04-18 07:11] MED LIST changes: +IBUPROFEN600 M1 ORAL
[2020-04-18 07:19] VITALS: BP 22/78
--- NOTE | 2020-04-18 07:20 | NUR ---
ED Nurse Note: Patient walked in to ER from home de to abscess to left chin area. Patient was here 03/06/20 for similar reason but it is not going away. Pt has completed bactrim therapy. Patient AAO x4, VSS at this time. ER MD at bed side
[2020-04-18] MEDS ORDERED: IBUPROFEN600 M1 ORAL (07:28)
--- NOTE | 2020-04-18 07:32 | Emergency Room Report ---
History of Present Illness General Chief Complaint: Skin Rash/Abscess Source: Patient Present Illness HPI Disclaimer: Please note that this report is being documented using [employer] technology. This can lead to erroneous entry secondary to incorrect interpretation by the dictating instrument. HPI: 44-year-old female presents for wound reevaluation. Patient was seen in the emergency department over 1 month ago with a small abscess on the right side of her chin. It was treated with Bactrim, mupirocin, clindamycin ointment. Patient states it is mostly healed and is no longer puffy draining or bleeding but reports persistent pain. Came for wound reevaluation as she is concerned they might be a retained hair or cyst deep in the skin. Denies fever , chills, skin breakdown recently. She admits that she has been picking at the healing skin. No new injury reported. 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 EOMI. Resp: Normal work of breathing Skin: Intact. There is a area of healing skin over the right lower chin consistent with patient's history of prior abscess. Epithelialized. No no edema, no erythema, no surrounding edema. No active bleeding or drainage. No fever, no chills. MSK: Normal tone and bulk. Moving all extremities. No obvious deformity. Neuro: Awake and alert. Mentating appropriately Medical Decision Making Diagnostic Impression: Primary Impression: Encounter for wound re-check ER Course 44-year-old female presents for reevaluation of facial wound after abscess treatment. No signs of active infection, no fluctuance, no edema, no erythema. Skin appears to be healing and epithelializing. By the patient's own admission she has been picking at it while healing for likely causing delay in full epithelialization at this time though there is no evidence of active infection. Do not believe she requires antibiotics, incision and drainage or any other emergent procedures at this time. Will refer to PMD and dermatology. Patient feels reassured and states she will follow-up with PMD for referral to dermatology later today. Discussed reasons to return to the ED. She understands and agrees with treatment plan. Last Vital Signs Date Time Temp Pulse Resp B/P (MAP) Pulse Ox O2 Delivery O2 Flow Rate FiO2 04/18/20 07:19 99.5 17 98 Room Air 04/18/20 07:14 92 Disposition: HOME, SELF-CARE Condition: Stable Scripts Ibuprofen* (MOTRIN*) 600 Mg Tablet 600 MG ORAL Q6H PRN for FOR PAIN, #20 TAB 0 Refills Prov: Florian Cervantes MD 04/18/20 Referrals: [facility] Additional Instructions: Please follow-up with your primary care doctor in the next 1 to 3 days to discuss this emergency department visit and for reevaluation. Ask for referral to dermatology or facial plastics to discuss your recent skin infections. Avoid picking at the skin as it heals. If you have any new or worsening symptoms please return to the emergency department for reevaluation. Please note that this report is being documented using [employer] technology. This can lead to erroneous entry secondary to incorrect interpretation by the dictating instrument. Florian Cervantes MD Apr 18, 2020 07:32
[2020-04-18 07:35] VITALS: BP 22/78
--- NOTE | 2020-04-18 07:35 | NUR ---
ER DISCHARGE NOTE: Patient is cleared to be discharged per ERMD, pt is aox4, on room air, with stable vital signs. pt was given dc and prescription instructions, pt was able to verbalize understanding, pt id band and iv site removed without complications. pt is able to ambulate with steady gait. pt took all belongings.
== END 2020-04-18 07:35 | disposition home or self-care (01) ==
LOC: EMR 07:35
DX: R52 Pain, unspecified (principal); Z88.8 Allergy status to other drugs, medicaments and biological substances
CPT/HCPCS: 99281